=== PATIENT | female | born 1940 | race Caucasian/White ===

== ENCOUNTER → 2016-08-15 | Outpatient (CLI) | payer BC ==
[~2016-08-15] MED LIST: ASPI81TA28 PO; CHOL100010 PO; HYDR-5688 PO; LEVO75TA PO; OMEG10007 PO; WARF2TAB PO
--- NOTE | 2016-08-15 13:04 | MAMMOGRAPHY REPORT ---
BILATERAL DIGITAL SCREENING MAMMOGRAM TOMOSYNTHESIS WITH CAD: 08/15/2016 CLINICAL HISTORY: Asymptomatic. Personal history of breast cancer. TECHNIQUE: Breast tomosynthesis in addition to standard 2D mammography was performed. Current study was also evaluated with a Computer Aided Detection (CAD) system. COMPARISON: Comparison is made to exams dated: 08/03/2015 mammogram, 08/01/2014 mammogram, 07/22/2013 ma mmogram, 07/21/2012 mammogram, 07/17/2011 mammogram, and 06/27/2010 mammogram - [facility] nter. BREAST COMPOSITION: The tissue of both breasts is heterogeneously dense, which may obscure small ma sses. FINDINGS: No suspicious masses, calcifications, or areas of architectural distortion are noted in e ither breast. There has been no significant interval change compared to prior exams. Mild landscape architect and planner ural distortion is seen within the right lateral breast and left upper outer quadrant on the tomosyn thesis images; these are felt to be due to postsurgical changes as linear scar markers denote scars at the sites of the architectural distortion. Another linear scar marker denotes a scar in the righ t 12:00 breast. Scattered bilateral benign-appearing calcifications are not significantly changed. Bilateral asymmetries are stable. IMPRESSION: ACR BI-RADS CATEGORY 2: BENIGN There is no mammographic evidence of malignancy. A 1 year screening mammogram is recommended. The p atient will receive written notification of the results. Approximately 10% of breast cancers are not detected with mammography. A negative mammographic repor t should not delay biopsy if a clinically suggestive mass is present. Janice Tenorio M.D. /:08/15/2016 12:18:32 Signal Repairer: Gurpreet GARCIA(R)(M), [facility] letter sent: Normal 1/2 BI-RADS Code: ACR BI-RADS Category 2: Benign
== END | disposition home or self-care (01) ==
LOC: C.MAMM 11:18
PROVIDERS: ATTEND Internal Medicine
DX: Z12.31 Encounter for screening mammogram for malignant neoplasm of breast (principal); Z85.3 Personal history of malignant neoplasm of breast

== ENCOUNTER → 2016-09-05 | Outpatient (CLI) | payer BC | END | disposition home or self-care (01) | LOC: C.RDSM 13:20 | PROVIDERS: ATTEND Physical Medicine & Rehabilitation Sports Medicine | DX: Z98.890 Other specified postprocedural states (principal); Z96.642 Presence of left artificial hip joint ==

== ENCOUNTER → 2016-09-19 | Outpatient (CLI) | payer BC ==
[2016-09-19 14:18] LABS: BASO % 0.2 %; BASO ABS # 0.01 K/uL (0-0.2); COMPLETE YES; EOS % 1.5 %; HEMATOCRIT 42.2 % (37-47); IG% 0.2 %; LYMPH % 28.1 %; MEAN CELL VOLUME 92.7 fL (80-100); MEAN CORPUSCULAR HEMOGLOBIN 30.1 pg (25-34); MEAN CORPUSCULAR HGB CONC 32.5 g/dl (32-36); MEAN PLATELET VOLUME 12.7 fL (7.4-10.4); MONO % 6.4 %; NEUT % 63.6 %; PLATELET COUNT 239 K/uL (130-400); RED BLOOD COUNT 4.55 M/uL (4.2-5.4); WHITE BLOOD COUNT 6.06 K/uL (4.8-10.8)
[2016-09-19 14:19] LABS: ESTIMATED AVERAGE GLUCOSE 120 mg/dl; HA1C FLAG Normal (Normal)
[2016-09-19 16:16] LABS: LYME DISEASE AB IGG NEG (NEG); LYME DISEASE AB IGM NEG (NEG)
[2016-09-24 14:10] LABS: HLA-B27** TC 528X NEGATIVE (NEGATIVE)
--- NOTE | 2016-09-26 10:41 | CODING QUERY MEDICAL NECESSITY ---
CQSUPPORTING DIAGNOSIS NEEDED A supporting diagnosis is required for the test/procedure performed on this patient in order for us to be reimbursed by the patient's insurance. Please provide a supporting diagnosis for the following test/procedure listed below next to the test name along with your signature. *If there is no additional diagnosis for this patient that would support the following test/procedure please document that below next to the test/procedure. Test(s)/Procedure(s) that require a supporting diagnosis: DOS 09/19/16 GLYCATED HEMOGLOBIN HISTOLOGY TESTING Provider Signature: Date: Thank you Tiffanie Fisher Health Information Management Once completed, please kindly fax back to [phone] For questions please call [phone]
== END | disposition home or self-care (01) ==
LOC: C.LAB 12:37
PROVIDERS: ATTEND Ophthalmology
DX: H20.9 Unspecified iridocyclitis (principal)

== ENCOUNTER → 2016-12-13 | Outpatient (CLI) | payer BC, OTHER ==
--- NOTE | 2016-12-13 12:58 | DIAGNOSTIC IMAGING REPORT ---
RIGHT KNEE 4 OR MORE CLINICAL HISTORY: RIGHT KNEE PAIN Right COMPARISON STUDY: Right knee 01/25/2016. FINDINGS: Mild cartilage space narrowing within the medial compartment of the left knee, unchanged. No fracture or dislocation within the right knee. No significant right knee effusion. The bones are osteopenic. There is tricompartmental osteoarthritis within the right knee which is not significantly changed. This includes a large marginal osteophytes. There is [id number] articulation within the medial compartment of the right knee. IMPRESSION: No change in the advanced arthritic change within the right knee. Electronically signed by: Victor Manuel Goldsmith M.D. 12/13/2016 12:56 PM Dictated Date/Time: 12/13/2016 12:54 PM
== END | disposition home or self-care (01) ==
LOC: C.RDSM 12:20
PROVIDERS: ATTEND Physician Assistant
DX: Z01.818 Encounter for other preprocedural examination (principal); M17.11 Unilateral primary osteoarthritis, right knee; E89.0 Postprocedural hypothyroidism

== ENCOUNTER → 2016-12-13 | Outpatient (CLI) | payer BC ==
[2016-12-13 15:20] LABS: BASO % 0.3 %; BASO ABS # 0.02 K/uL (0-0.2); COMPLETE YES; EOS % 1.9 %; HEMATOCRIT 41.3 % (37-47); IG% 0.2 %; LYMPH % 29.2 %; LYMPH ABS # 1.85 K/uL (1.2-3.4); MEAN CELL VOLUME 92.4 fL (80-100); MEAN CORPUSCULAR HEMOGLOBIN 31.1 pg (25-34); MEAN CORPUSCULAR HGB CONC 33.7 g/dl (32-36); MEAN PLATELET VOLUME 13.2 fL (7.4-10.4); MONO % 7.6 %; NEUT % 60.8 %; PLATELET COUNT 217 K/uL (130-400); RED BLOOD COUNT 4.47 M/uL (4.2-5.4); URINE APPEARANCE CLEAR (CLEAR); URINE BILIRUBIN NEG (NEG); URINE COLOR YELLOW; URINE NITRITE NEG (NEG); URINE PH 5.5 (4.5-7.5); UROBILINOGEN NEG (NEG); WHITE BLOOD COUNT 6.34 K/uL (4.8-10.8)
[2016-12-13 15:24] LABS: MANUAL MICROSCOPIC REQUIRED? NO; REVIEW REQ? NO
[2016-12-13 15:29] LABS: INR 0.9 (0.9-1.1); PARTIAL THROMBOPLASTIN RATIO 1.1
[2016-12-13 15:36] LABS: ALT/SGPT 20 U/L (12-78); BLOOD UREA NITROGEN 16 mg/dl (7-18); BUN/CREATININE RATIO 24.2 (10-20); CALCIUM 9.6 mg/dl (8.5-10.1); CARBON DIOXIDE 29 mmol/L (21-32); CHLORIDE 109 mmol/L (98-107); CREATININE 0.67 mg/dl (0.60-1.20); GLUCOSE 80 mg/dl (70-99); POTASSIUM 3.8 mmol/L (3.5-5.1); SODIUM 142 mmol/L (136-145)
[2016-12-13 15:39] LABS: ALKALINE PHOSPHATASE 80 U/L (45-117); AST/SGOT 17 U/L (15-37)
[2016-12-13 15:45] LABS: THYROID STIMULATING HORMONE 0.882 uIu/ml (0.300-4.500)
--- NOTE | 2017-01-13 06:41 | CODING QUERY MEDICAL NECESSITY ---
SUPPORTING DIAGNOSIS NEEDED Dr. English, A supporting diagnosis is required for the test/procedure performed on this patient in order for us to be reimbursed by the patient's insurance. Please provide a supporting diagnosis for the following test/procedure listed below next to the test name along with your signature. *If there is no additional diagnosis for this patient that would support the following test/procedure please document that below next to the test/procedure. Test(s)/Procedure(s) that require a supporting diagnosis: * ([id number]) VITAMIN D ASSAY DIAGNOSIS: DATE OF SERVICE: 12/13/16 Provider Signature: Date: Thank you Cal Covarrubias [facility] Information Management Once completed, please kindly fax back to [phone] For questions please call [phone]
== END | disposition home or self-care (01) ==
LOC: C.LAB 12:54
PROVIDERS: ATTEND Internal Medicine
DX: Z01.818 Encounter for other preprocedural examination (principal); E89.0 Postprocedural hypothyroidism; E55.9 Vitamin D deficiency, unspecified

== ENCOUNTER 2017-01-08 08:20 | Inpatient (IN) | payer BC, OTHER ==
[2016-12-02 11:00] VITALS: BMI 33.0
--- NOTE | 2016-12-13 13:47 | DIAGNOSTIC IMAGING REPORT ---
CHEST 2 VIEWS ROUTINE CLINICAL HISTORY: Preoperative chest COMPARISON STUDY: 09/15/2006 FINDINGS: The cardiac and mediastinal contours are normal. There is no evidence of focal pulmonary consolidation. There is no evidence of failure. No pleural effusions are visualized.[ IMPRESSION: No active disease in the chest. Electronically signed by: Wayne Gracia M.D. 12/13/2016 1:46 PM Dictated Date/Time: 12/13/2016 1:46 PM
--- NOTE | 2016-12-20 08:32 | HISTORY & PHYSICAL EXAMINATION ---
DATE OF ADMISSION: 01/08/2017 CHIEF COMPLAINT: Right knee pain. HISTORY OF PRESENT ILLNESS: This 76-year-old white female presents to the office with complaints of right knee pain that had been ongoing for more than a year. Pain has become worse with time. It is now affecting her ADLs. It is worse with weightbearing. She denies any numbness or tingling. No effusions. She does get night pain. She has tried physical therapy as well as activity modification and oral anti-inflammatories without lasting relief. She elects to proceed with surgery in hopes of alleviating her pain. Preoperative x-rays have been obtained. PAST MEDICAL HISTORY: Significant for osteoarthritis, parathyroid cancer, breast cancer, asthma, actinic keratosis, and seborrheic keratosis. FAMILY HISTORY: Noncontributory. SOCIAL HISTORY: The patient previously had a left total hip arthroplasty in 2010, multiple biopsies of her skin, breast lumpectomy, tonsillectomy, and parathyroidectomy. ALLERGIES: KNOWN ALLERGY TO CIPRO AND ERYTHROMYCIN. CURRENT MEDICATIONS: Advil p.r.n., Paulette 180 mg p.o. daily, aspirin 81 mg p.o. daily, fish oil daily, Synthroid 75 mcg p.o. daily, vitamin B and D daily. PHYSICAL EXAMINATION: VITAL SIGNS: The patient is retired. . No tobacco use, quit in 1983. No ETOH use. REVIEW OF SYSTEMS: Significant for above stated conditions, otherwise unremarkable. PHYSICAL EXAMINATION: GENERAL: Well-developed, well-nourished elderly white female in no acute distress. Sitting in a chair. Alert and oriented. SKIN: Warm and dry with good turgor. No rashes or lesions. No ecchymosis or erythema. HEAD, EYES, EARS, NOSE, AND THROAT: Normocephalic, atraumatic. Eyes PERRLA, EOMI. Nares patent bilaterally without turbinate enlargement. Oropharynx without erythema or exudate. No lesions noted. Uvula midline. Oral mucosa moist. Fair dentition. HEART: RRR. No MGR. LUNGS: Clear to auscultation bilaterally. No crackles, rhonchi or wheezing. Good air movement. ABDOMEN: Bowel sounds present x4, soft, nontender. No organomegaly. Obese. MUSCULOSKELETAL: Right knee has a mild intra-articular effusion. No redness or warmth. Full terminal extension. Flexion to greater than 90 degrees. There is crepitus with motion. Stable collateral ligaments. No defect in the patellar tendon or quadriceps tendon. Ambulatory with an antalgic gait. NEUROLOGIC: Gross sensation is intact across the right leg via soft touch. Peripheral pulses are 2+. Cranial nerves II-XII are intact. DATA: Radiographic imaging previously obtained shows end-stage DJD of the right knee. She has periarticular osteophytes, subchondral sclerosis, and joint space narrowing. IMPRESSION: Right knee end-stage degenerative joint disease. PLAN: Informed written consent to proceed with right total knee arthroplasty will be obtained the morning of surgery. Postoperative prescriptions for Percocet and Coumadin will be provided at discharge from the hospital. The patient did inquire if she would be able to stop Coumadin early and transition to aspirin. We will see how active she becomes postoperatively. She already has a walker and cane. She will obtain medical clearance from her PCP, Dr. English. Anticipate discharge to home with home health services. Her daughter will stay with her for a short while after surgery.
[~2017-01-08] VITALS: Ht 167.6 cm; Wt 93.0 kg
[2017-01-08] VITALS (9 sets, daily range): BP systolic 117–148; BP diastolic 72–95; PULSE 57–80; TEMP 36.4–36.7; O2SAT 93–100; Ht 167.6 cm; Wt 93.0 kg
[~2017-01-08 08:20] MED LIST changes: +BUPIVACAINE 0.25% 30 ML VIAL ONE; +BUPIVACAINE 0.5 % 5 MG/1 ML PF 10ML VIAL ONE; +CEFAZOLIN 2000 MG/60 ML D5W 60 ML IV SCH; -HYDR-5688 PO; +LACTATED RINGER'S 1000ML 1,000 ML IV SCH; +LACTATED RINGER'S 1000ML 500 ML IV ONE; +ROPIVACAINE 5MG/ML 30 ML 150 MG, BUPIVACAINE/EPINEPHR 0.5% MPF 30 ML, KETOROLAC TROMETH... INFIL SCH; +TRANEXAMIC ACID INJ 1,000 MG in SODIUM CHLORIDE 0.9% 100ML 100 ML IV SCH; -WARF2TAB PO
--- NOTE | 2017-01-08 08:29 | History & Physical Bridge Note ---
H&P Re-Evaluation Bridge Note: I have examined the patient, reviewed the History & Physical and in the interval since the performance of the History & Physical I have noted the following changes of clinical significance: consent obtained.No changes noted
[2017-01-08] MEDS ORDERED: PROPOFOL IV EMULSION 10 MG/ML 20 ML VIAL IV ONE (09:27)
[2017-01-08] MEDS ORDERED: LIDOCAINE HCL 2% 2 ML VIAL (20MG/ML) ONE ×2 (09:27→11:21)
[2017-01-08] MEDS ORDERED: MIDAZOLAM HCL 1 MG/ML 2ML VIAL ONE ×2 (09:27→11:12)
[2017-01-08] MEDS ORDERED: FENTANYL CITRATE INJ 50 MCG/1 ML 2 ML VIAL ONE (09:27)
[2017-01-08] MEDS ORDERED: ONDANSETRON INJ 2 MG/ML 2 ML VIAL IV PRN ×2 (10:15→12:30)
[2017-01-08] MEDS ORDERED: PHENYLEPHRINE 100MCG/ML 5ML SYR IV PRN (10:15)
[2017-01-08] MEDS ORDERED: HYDROmorphone INJ 2 MG/ML SYR/VIAL IV PRN (10:15)
[2017-01-08] MEDS ORDERED: EpHEDrine SULFATE INJ 50 MG/ML AMP IV PRN (10:15)
[2017-01-08] MEDS ORDERED: KETOROLAC TROMETHAMINE 30 MG/ML VIAL IV. PRN (10:15)
[2017-01-08] MEDS ORDERED: ATROPINE SULFATE 0.1 MG/ML 5ML SYR IV PRN (10:15)
[2017-01-08] MEDS ORDERED: POVIDONE-IODINE OP SOLN 30 ML BTL ONE (10:29)
[2017-01-08] MEDS ORDERED: ORTHO JOINT ANESTHETIC ONE (10:29)
[2017-01-08] MEDS ORDERED: KETAMINE HCL INJ 50 MG/ML 10 ML VIAL ONE (11:08)
[2017-01-08] MEDS ORDERED: SODIUM CHLORIDE 0.9% INJ 10 ML VIAL ONE (12:01)
--- NOTE | 2017-01-08 12:17 | [facility] Post Operative Brief Note ---
Immediate Operative Summary Operative Date Jan 08, 2017. Pre-Operative Diagnosis Right knee end-stage degenerative joint disease Post-Operative Diagnosis Right knee end-stage degenerative joint disease Procedure(s) Performed Right total knee arthroplasty, cemented Surgeon Dr. Moy Middleware Developer Surgeon(s) Swapnil Zamarripa PA-C Estimated Blood Loss 50 mL Findings severe djd with varus and flexion deformity Fluids (cc crystalloids) 1200cc Specimens A: Right knee bone and tissue Drains none Anesthesia spinal Complication(s) None Disposition Recovery Room / PACU
[2017-01-08] MEDS ORDERED: DiphenhydrAMINE HCL 50 MG/ML VIAL IV PRN (12:30)
[2017-01-08] MEDS ORDERED: ALUMINUM/MAGNESIUM/SIMETH (MAALOX MAX) 30 ML UDC PO PRN (12:30)
[2017-01-08] MEDS ORDERED: MAGNESIUM HYDROXIDE SUSP 30 ML UDC PO PRN (12:30)
[2017-01-08] MEDS ORDERED: MoRPHine SULFATE 2 MG/ML CARP IV PRN (12:30)
[2017-01-08] MEDS ORDERED: BISACODYL 10 MG SUPP PR PRN (12:30)
[2017-01-08] MEDS ORDERED: METOCLOPRAMIDE HCL INJ 5 MG/ML 2 ML VIAL IV PRN (12:30)
[2017-01-08] MEDS ORDERED: ACETAMINOPHEN 325 MG TAB PO PRN (12:30)
[2017-01-08] MEDS ORDERED: ACETAMINOPHEN IV 100 ML IV PRN (12:30)
--- NOTE | 2017-01-08 12:40 | [facility] Operative Report ---
Operative Report Operative Date Jan 08, 2017. Pre-Operative Diagnosis Right knee end-stage degenerative joint disease Post-Operative Diagnosis Right knee end-stage degenerative joint disease Procedure(s) Performed Right total knee arthroplasty, cemented Surgeon Dr. Moy Licensed Marriage And Family Therapist Surgeon(s) Swapnil Zamarripa PA-C, Bernabe Flores Estimated Blood Loss 50 mL Findings Right knee DJD Fluids 1200cc Specimens A: Right knee bone and tissue Drains none Anesthesia spinal Complication(s) None Disposition Recovery Room / PACU Indications This 76-year-old white female presented to the office with complaints of intractable right knee pain. She had tried conservative measures including activity modification, physical therapy, oral anti-inflammatories, cortisone injections, and viscous supplementation injections. Her pain persisted. It was affecting her ADLs. She elected to proceed with surgical management in hopes of alleviating her pain. Preoperative imaging was obtained. Description of Procedure Patient was administered a spinal anesthetic and then taken to the operating room where she was given sedation. She was prepped and draped in usual sterile fashion. Please see Dr. Moy's operative report for specifics of the procedure. I was present for the entire case from initial patient positioning through final wound closure. Assistance was provided in tissue traction, hemostasis, trial implant placement, final implant placement, and final wound closure. Patient was taken to the recovery room in satisfactory condition. I attest to the content of the Intraoperative Record and any orders documented therein. Any exceptions are noted below.
--- NOTE | 2017-01-08 12:51 | OPERATIVE REPORT ---
DATE OF OPERATION: 01/08/2017 SURGEON: Dr. Moy. CARE COMPANION: Bernabe. SECOND ASSITANT: Swapnil Zamarripa PA-C. PREOPERATIVE DIAGNOSIS: Osteoarthritis, right knee with flexion and varus deformity. POSTOPERATIVE DIAGNOSIS: Same. OPERATION PERFORMED: Cemented right total knee replacement. SUMMARY OF IMPLANTS: Size 4 right femur narrow, size 4 tibial tray, oval domed 3-pegged patella size 41, tibial insert size 4 15 mm thick posterior cruciate substituting. Two bags of Palacos G cement. ESTIMATED BLOOD LOSS: 50 mL. CRYSTALLOID: 1200 mL. DVT prophylaxis per protocol. DESCRIPTION OF PROCEDURE: The patient appropriately identified, site verified, consent verified, 2 g of Ancef confirmed as being given. The right lower extremity was prepped and draped in usual routine fashion. Tourniquet inflated to 300 mmHg after exsanguination of the limb with a rubber Esmarch bandage for a total of 55 minutes. Midline exposure was utilized. Parapatellar arthrotomy performed. Appropriate synovectomy and soft tissue releases performed. She had significant varus and flexion deformity. Cruciates were then resected. The distal femur entered. The distal femur resected 14 mm. Femur was an unusual size, was measured between a 5 and a 6. It was measured 6 and cut 5 and then the anterior and posterior condylar and chamfer cuts made. Proximal tibia was then measured to be a size 4, was delivered in the wound and a 4 mm resection made and the extension gap was excellent. Once the box cut was made, the flexion gap was checked and that was excellent. A size 5 trial then seemed still to overhang a bit and so forth so was sized down and recut to a 4. This definitely made things more appropriate as far as matching the patient's anatomy and the implant fit extremely well. The tibia was then broached and reamed to a 4. Trial reductions were carried out and a 15 insert made the most stability in mid range flexion without eliminating extension. The patella was sized to 41, it was then resected, leaving 15 mm. Seating holes made and the trial tracked well. All trial implants were then removed. The wound irrigated with the Pulsavac, with Betadine, with the Pulsavac and then the permanent cemented into position. After 12 minutes, the tourniquet deflated. After 14 minutes, the knee flexed. Minor cement removal occurred. The knee was then irrigated with Betadine, Pulsavac and the permanent liner seated. The knee reduced, it tracked well, it was very stable in extension, mid range flexion and full flexion. The wound was then closed with #1 Ethibond for the capsule layer, 2-0 Vicryl for the subcutaneous layer and stainless steel clips for skin. Appropriate dressing applied and the patient transferred to recovery room in satisfactory condition, having tolerated the procedure well. I attest to the content of the Intraoperative Record and any orders documented therein. Any exception s are noted below.
[2017-01-08] MEDS ORDERED: MoRPHine SULFATE 4 MG/ML 1 ML CARP\\VIAL IV PRN (13:00)
--- NOTE | 2017-01-08 13:06 | Progress Note ---
Progress Note Date of Service Jan 08, 2017. Progress Note Postop check in recovery room. She denies chest pain shortness of breath fever chills nausea vomiting or headache. Vital signs are stable she's afebrile. X-rays are pending. Physical exam reveals calves to be nontender, hips are located, dressing clean dry and intact. Assessment doing well continue with care pathway. Dictated not read.
--- NOTE | 2017-01-08 13:29 | DIAGNOSTIC IMAGING REPORT ---
ADDENDUM In consultation with the surgeon performing the procedure, it was felt that osseous fragmentation at the medial femoral condyle definitely is a consequence of exuberant marginal osteophytosis. Osteophytosis in this region was best appreciated on tunnel view from 12/13/2016. Electronically signed by: Abiodun Davies M.D. 01/13/2017 12:44 PM Dictated Date/Time: 01/13/2017 12:42 PM ORIGINAL REPORT RIGHT KNEE 1 OR 2 VIEWS ROUTINE CLINICAL HISTORY: 76 years-old Female presenting with right knee osteoarthritis. TECHNIQUE: Frontal and crosstable lateral views of the right knee were obtained. COMPARISON: 12/13/2016. FINDINGS: There has been interval total right knee arthroplasty with patellar resurfacing. Surgical skin valerie and intra-articular and soft tissue emphysema noted. Fragmentation of the medial femoral condyle likely a consequence of osteophytosis at the site. No other evidence of fracture. No hardware convocation or malalignment. IMPRESSION: Postsurgical changes of total right knee arthroplasty with patellar resurfacing. Osseous fragmentation at the medial femoral condyle likely a consequence of osteophytosis at this site. Electronically signed by: Abiodun Davies M.D. 01/08/2017 1:27 PM Dictated Date/Time: 01/08/2017 1:26 PM
--- NOTE | 2017-01-08 13:54 | Anesthesiology Progress Note ---
Anesthesia Post Op Note Date & Time Jan 08, 2017 at 13:54 Vital Signs Pain Intensity: 0 Vital Signs Past 12 Hours Date Time Temp Pulse Resp B/P (MAP) Pulse Ox O2 Delivery O2 Flow Rate FiO2 01/08/17 13:15 55 18 121/71 96 Nasal Cannula 3 01/08/17 13:05 61 18 117/72 96 Nasal Cannula 3 01/08/17 12:55 57 18 107/66 96 Nasal Cannula 3 01/08/17 12:45 56 18 116/67 94 Nasal Cannula 3 01/08/17 12:35 63 18 115/65 96 Nasal Cannula 3 01/08/17 12:28 36.2 77 18 107/66 96 Nasal Cannula 3 01/08/17 09:02 36.5 80 18 148/95 97 Room Air Notes Mental Status: alert / awake / arousable, participated in evaluation Pt Amnestic to Procedure: Yes Nausea / Vomiting: adequately controlled Pain: adequately controlled Airway Patency, RR, SpO2: stable & adequate BP & HR: stable & adequate Hydration State: stable & adequate Anesthetic Complications: no major complications apparent
[2017-01-08] MEDS ORDERED: HYDR-5688 PO (14:22)
[2017-01-08] MEDS ORDERED: WARF2TAB PO (14:22)
[2017-01-08] MEDS ORDERED: D5W AND 1/2NSS + 20MEQ KCL 1,000 ML IV SCH (16:00)
[2017-01-08] MEDS ORDERED: WARFARIN SOD 5 MG TAB PO ONE (18:00)
[2017-01-08] MEDS ORDERED: TRANEXAMIC ACID INJ 1,000 MG in SODIUM CHLORIDE 0.9% 100ML 100 ML IV SCH (18:30)
[2017-01-08] MEDS: FERROUS GLUCONATE 324 MG TAB PO SCH (18:34)
[2017-01-08] MEDS: KETOROLAC TROMETHAMINE 15 MG/ML VIAL IV. SCH (18:34)
[2017-01-08] MEDS: CEFAZOLIN IV 2,000 MG in DEXTROSE 5% 50ML 50 ML IV SCH (18:34)
[2017-01-08] MEDS: HYDROCODONE/ACETAMOPHEN 5/325MG TAB PO PRN (19:58)
[2017-01-08] MEDS: PrednisoLONE ACET 1% OP SUSP 5 ML BTL OPR SCH (20:59)
[2017-01-08] MEDS ORDERED: ASPIRIN 81 MG ECTAB PO SCH (21:00)
[2017-01-08] MEDS: DOCUSATE SODIUM 100 MG CAP PO SCH (21:01)
[2017-01-08] MEDS ORDERED: NURSING VERBAL MED ORDER ONE (22:30)
[2017-01-09] MEDS: KETOROLAC TROMETHAMINE 15 MG/ML VIAL IV. SCH ×3 (00:09→12:35)
[2017-01-09] MEDS: HYDROCODONE/ACETAMOPHEN 5/325MG TAB PO PRN ×2 (01:39→11:20)
[2017-01-09] MEDS: CEFAZOLIN IV 2,000 MG in DEXTROSE 5% 50ML 50 ML IV SCH (01:39)
[2017-01-09 02:39] VITALS: BP 99/66; PULSE 50; TEMP 36.7; O2SAT 97
[2017-01-09 05:18] VITALS: BP 120/77
[2017-01-09] MEDS ORDERED: LEVOTHYROXINE 75 MCG TAB PO SCH (06:00)
[2017-01-09 06:39] LABS: MEAN CELL VOLUME 94.8 fL (80-100); MEAN CORPUSCULAR HEMOGLOBIN 31.2 pg (25-34); MEAN CORPUSCULAR HGB CONC 32.9 g/dl (32-36); MEAN PLATELET VOLUME 12.4 fL (7.4-10.4); PLATELET COUNT 166 K/uL (130-400); RED BLOOD COUNT 3.27 M/uL (4.2-5.4); WHITE BLOOD COUNT 13.73 K/uL (4.8-10.8)
[2017-01-09 06:54] VITALS: BP 98/60; PULSE 66; TEMP 36.6; O2SAT 96
[2017-01-09 06:56] LABS: PROTHROMBIN TIME (PATIENT) 10.9 SECONDS (9.0-12.0)
[2017-01-09 07:06] LABS: BUN/CREATININE RATIO 16.9 (10-20); CALCIUM 8.2 mg/dl (8.5-10.1); CREATININE 0.76 mg/dl (0.60-1.20); POTASSIUM 3.9 mmol/L (3.5-5.1)
--- NOTE | 2017-01-09 07:25 | PROGRESS NOTE ---
DATE: 01/09/2017 SUBJECTIVE: Postop day#1 status post right total knee replacement: The patient denies chest pain, shortness of breath, fever, chills, nausea, vomiting or headache. She did have some minor nausea after one of the pain medications, but responded well to Zofran. She is not nauseated now. Vital signs are stable. She is afebrile. Neurovascular check, femoral sciatic nerve is normal. Dressing clean, dry and intact. Can do straight leg raise, can do ankle pumps. Calves are nontender. Abdomen, nontender. LABORATORY WORK: Pending. ASSESSMENT: Doing well. Discharge today after physical therapy, occupational therapy. Social service assessment this morning. Wants to be discharged about noon. Coumadin dose per INR. If INR is less than 1.5, discharge on 4 mg.
[2017-01-09] MEDS ORDERED: DEXAMETHASONE INJ 10 MG in SYRINGE 0 ML IV ONE (07:30)
--- NOTE | 2017-01-09 07:31 | DISCHARGE SUMMARY ---
CHIEF COMPLAINT: Right knee pain. HISTORY OF PRESENT ILLNESS: The patient underwent elective right total knee replacement, had no intraoperative or perioperative complications. Only had some minor nausea. PAST MEDICAL HISTORY: Remarkable for osteoarthritis, parathyroid cancer, breast cancer, asthma, actinic keratosis, seborrheic keratosis. FAMILY HISTORY: Noncontributory. SOCIAL HISTORY: Reveals that she had a left total hip replacement in 2010, multiple skin biopsies, breast lumpectomy, tonsillectomy, and parathyroidectomy. ALLERGIES: TO CIPRO, AND ERYTHROMYCIN. PREADMISSION MEDICATIONS: Include, p.r.n. Advil , Paulette, aspirin 81 mg daily, fish oil, Synthroid 75 mcg daily, and vitamin B/D supplements. She will continue all of those medications, except the baby aspirin while she is on Coumadin. She will be discharged on 4 mg of Coumadin. If INR is less than 1.5, check INR on Friday. PHYSICAL EXAMINATION: Reveals good femoral and sciatic nerve functioning. Can lift the leg. Can do ankle pumps, is mobilizing well, is voiding well, is eating well. Wound dressing clean, dry and intact. ASSESSMENT: Doing well. PLAN: Continue with post-care pathway. Discharge today after PT, OT and social service assessments. RAFAEL
[2017-01-09] MEDS: PrednisoLONE ACET 1% OP SUSP 5 ML BTL OPR SCH ×2 (08:42→12:36)
[2017-01-09] MEDS: DOCUSATE SODIUM 100 MG CAP PO SCH (08:43)
[2017-01-09] MEDS: FERROUS GLUCONATE 324 MG TAB PO SCH ×2 (08:43→12:34)
[2017-01-09] MEDS ORDERED: PANTOprazole SOD 40 MG TAB PO SCH (09:00)
[2017-01-09] MEDS ORDERED: MULTIVITAMIN TAB PO SCH (09:00)
--- NOTE | 2017-01-09 09:23 | Discharge Instructions ---
Discharge Instructions Date of Service Jan 08, 2017. Admission Reason for Admission: Right Knee Osteoarthritis Discharge Discharge Diagnosis / Problem: right knee s/p total knee replacement Discharge Goals Goal(s): Decrease discomfort, Improve function, Increase independence Activity Recommendations Activity Limitations: as noted below Lifting Limitations: gradually increase as tolerated Exercise/Sports Limitations: until after follow-up appointment Shower/Bathe: keep incision dry Driving or Machine Use: No driving until cleared by Dr. Moy Weightbearing Status: Right weightbearing (as tolerated) . Instructions / Follow-Up Instructions / Follow-Up New Medicine: * You will likely be taking one or more of these medications: 1. [place] - Take, as directed, when you need it, every four to six hours to control your pain. 2. Coumadin - Thins your blood to lessen the chance of forming a blood clot. The dose of this is different for each person and is based on your blood tests that are done twice a week. * The most common side effects of pain medicine and iron are nausea and constipation. If nausea or constipation is too much of a problem or if you have any questions about your new medicines or doses, call [facility] at . We will try to help you manage these issues. VERY IMPORTANT TO READ AND REVIEW" Blood Clots and Blood Thinning Medicine: * You are given Coumadin during the immediate post-operative period to lessen the risk of blood clots forming in your legs and/or lungs. Coumadin is usually given for six weeks after surgery. * The prescription is for 2 mg tablets. At discharge, you should understand your dose and take it all at the same time every day, preferably after dinner. * You need to get your blood checked 1 - 2 times per week for six weeks or as directed. * If your dose needs to change, we will call you. Do not take your medication on the day of the blood test until we call you. Pain: * The immediate post-operative period after knee replacement surgery is often quite painful. * You are given a prescription for pain medicine. You should take it, as directed, when you need it, especially before physical therapy and before going to bed. Pain that interferes with sleep is very common and can last several months. * You will likely need pain medicine for the first four to six weeks. It will not stop all of the pain. The pain will lessen and as you feel better, you may change to milder pain medicine such as Tylenol. * The most common side effects of pain medicine are nausea and constipation, so don't take more than you need. Physical Therapy: * You will have physical therapy two or three times each week for four to six weeks after your surgery in order to regain your knee range of motion and to retrain your knee to work properly. * It is just as important to make sure you are getting your knee perfectly straight as it is to regain your knee bend. * Taking a pain pill an hour before therapy can help you have a more productive and comfortable therapy session if needed. Home Exercise: * You were shown a series of exercises (heel props, heel slides, etc.) in the hospital. Do these exercises three to four times each day including the exercises you were shown in physical therapy. Walking: * Get up and walk several times each day. For the first four weeks, try not to stand or walk for more than one hour at a time. If you do stand or walk for more than one hour, you will not hurt anything, but your knee and leg will likely swell. * As you feel comfortable, you may change from the walker or crutches to a cane and then to independent walking. SELF CARE INSTRUCTIONS AFTER TOTAL KNEE REPLACEMENT A. You may need to continue a physical therapy program after discharge from the hospital. There are several options available to you. Your doctor will assist you in selecting the best one for you. 1. An out-patient facility 2 to 3 times a week for therapy or home therapy. 2. Continue working on all exercises taught to you in the hospital. Your goals should be to increase bending of your knee to 90 degrees and beyond and to fully straighten your knee. B. You may progress at your own pace from walking with a walker or crutches to a cane; then to no assistive devices. C. Make walking a part of your daily routine. Be up as much as comfortable with rest periods throughout the day. Rest with leg elevation is very important. Use the ice wrap frequently for the first 3-4 weeks. D. There are no restrictions on activities. You may ride in a car, shop, participate in loading unit operator powder charging and all social activities. E. Wear the long elastic stockings (ELIZABETH hose) 20 hours a day for six weeks after surgery. They can be removed several times a day for laundering and for a shower. F. Do not place a pillow behind your knee when resting. A pillow at your ankle is okay. VERY IMPORTANT TO READ AND REVIEW A. Take Coumadin, Aspirin or Lovenox (blood thinning medications) as directed by your doctor. If on Coumadin, have a pro-time (blood test) drawn according to your doctor's instructions. This will tell the doctor how well the Coumadin is thinning your blood. 1. YOU WILL BE GIVEN AN ORDER AT DISCHARGE FOR PT/INR (BLOOD WORK). PLEASE HAVE THIS DONE INSTRUCTED. PLEASE CALL OUR OFFICE AFTER YOUR BLOODWORK IS COMPLETE SO WE CAN TRACK YOUR RESULTS. IF YOU ARE GOING TO OUTPATIENT PHYSICAL THERAPY, YOU WILL NEED TO GO TO OUTPATIENT TESTING TO HAVE IT DRAWN. B. There are a few signs you need to watch for after you are home. Call [facility] if you notice any of the followin. Increased severe knee pain. Some pain is expected especially when you exercise. 2. Increased swelling in your leg or knee; pain or swelling of the calf muscle in either lower leg. 3. Any fluid drainage from the incision. 4. Shortness of breath or chest pain. C. Please call [facility] at if you have any concerns or questions about your operation or recovery. The doctor or his nurse will return your call promptly. D. You must take antibiotics before dental work, bladder, bowel or other surgery. Call the office to obtain a prescription at least 2 days prior to your appointment. * CALL IF INCREASED PAIN, REDNESS, DRAINAGE OR FEVER GREATER THAT 101. * Sutures should be removed 12-14 days after surgery unless you are on chronic steriods, then it will be 14-18 days after surgery. Call your doctor if: * Temperature above 101 degrees F. * Pain not relieved by pain medicine ordered. * Increased drainage or redness from incision. * Notify your doctor with any questions or concerns. Current Hospital Diet Patient's current hospital diet: Regular Diet Discharge Diet Recommended Diet: Regular Diet Procedures Procedures Performed: Right total knee arthroplasty, cemented Pending Studies Studies pending at discharge: no Laboratory Results Lipid Panel Test 12/13/16 13:02 Range/Units Triglycerides Level 109 0-150 mg/dl Cholesterol Level 228 H 0-200 mg/dl HDL Cholesterol 57 mg/dl Cholesterol/HDL Ratio 4.0 LDL Cholesterol, Calculated 149 mg/dl Medical Emergencies . Who to Call and When: Medical Emergencies: If at any time you feel your situation is an emergency, please call 911 immediately. . Non-Emergent Contact Non-Emergency issues call your: Primary Care Provider, Surgeon Call Non-Emergent contact if: temperature is above 101, wound has increased drainage, wound has increased redness, wound has increased pain . "Provider Documentation" section prepared by Swapnil Zamarripa PA-C. . VTE Core Measure Inpt VTE Proph given/why not?: Warfarin (Coumadin), T.E.DRosa Stockings, SCD's [place] Drug Monitoring Program Search Results: no issues identified
--- NOTE | 2017-01-09 09:27 | Orthopedic Progress Note ---
Orthopedic Progress Note Date of Service Jan 09, 2017. Subjective Post OP Day: 1 Reports: feeling well, nausea / vomiting (had some early this morning, but is resolved), calf pain, pain controlled w PO medications, Denies: complaints, chest pain, SOB, light headedness Objective calves soft nontender, N/V intact, hip located, capillary refill less than 2 sec., dressing C/D/I, incision C/D/I, A&O x3, toes mobile, CMS intact minimal drainage on dressing, no active drainage Date Time Temp Pulse Resp B/P (MAP) Pulse Ox O2 Delivery O2 Flow Rate FiO2 01/09/17 07:15 Room Air 01/09/17 06:54 36.6 66 19 98/60 (73) 96 Room Air 01/09/17 05:18 120/77 (91) 01/09/17 02:39 36.7 50 18 99/66 (77) 97 Nasal Cannula 2.0 01/09/17 00:20 Room Air 01/08/17 22:45 36.4 60 16 117/74 (88) 93 Room Air 01/08/17 18:24 36.6 70 18 128/81 (97) 95 Room Air 01/08/17 17:32 36.7 62 16 128/84 (99) 100 Nasal Cannula 3.0 01/08/17 16:30 36.4 58 16 135/84 (101) 100 Room Air 01/08/17 16:15 100 Nasal Cannula 3.0 01/08/17 15:30 36.6 59 18 132/82 (99) 100 Nasal Cannula 3.0 01/08/17 15:00 62 17 143/87 (105) 99 Nasal Cannula 2.0 01/08/17 14:30 Nasal Cannula 3.0 01/08/17 14:30 97 Nasal Cannula 3.0 01/08/17 14:30 36.7 57 18 122/72 (89) 97 Nasal Cannula 3.0 01/08/17 14:15 36.9 65 18 129/78 97 Nasal Cannula 3 01/08/17 14:00 36.9 59 18 120/73 97 Nasal Cannula 3 01/08/17 13:45 58 18 124/73 97 Nasal Cannula 3 01/08/17 13:35 55 18 125/81 97 Nasal Cannula 3 01/08/17 13:25 60 18 123/72 97 Nasal Cannula 3 01/08/17 13:15 55 18 121/71 96 Nasal Cannula 3 01/08/17 13:05 61 18 117/72 96 Nasal Cannula 3 01/08/17 12:55 57 18 107/66 96 Nasal Cannula 3 01/08/17 12:45 56 18 116/67 94 Nasal Cannula 3 01/08/17 12:35 63 18 115/65 96 Nasal Cannula 3 01/08/17 12:28 36.2 77 18 107/66 96 Nasal Cannula 3 Laboratory Results 24 Hours: Test 01/09/17 06:07 Hematocrit 31.0 % Hemoglobin 10.2 g/dL Prothromb Time International Ratio 1.0 Prothrombin Time 10.9 SECONDS Assessment & Plan Assessment: right knee post op day 1 total knee arthroplasty Plan: PT/OT today continue total knee precautions D/C today to home with home health WBAT follow up in the office in 2 weeks as scheduled coumadin per nomogram dressing changed this morning by me-wound looks very good. Discharge Planning Discharge Planning: home with home health Pain Management: [place] DVT Prophylaxis: TEDs, SCDs, Coumadin Therapy: Physical Therapy, Occupational Therapy
[2017-01-09 10:16] VITALS: BP 117/77; PULSE 79; O2SAT 98
[2017-01-09 11:06] VITALS: BP 117/77; PULSE 79; TEMP 36.6; O2SAT 98
--- NOTE | 2017-01-09 11:08 | Anesthesiology Progress Note ---
Anesthesia Post Op Note Date & Time Jan 09, 2017 at 11:08 Vital Signs Pain Intensity: 3.0 Vital Signs Past 12 Hours Date Time Temp Pulse Resp B/P (MAP) Pulse Ox O2 Delivery O2 Flow Rate FiO2 01/09/17 10:16 79 16 117/77 (90) 98 Nasal Cannula 2.0 01/09/17 07:15 Room Air 01/09/17 06:54 36.6 66 19 98/60 (73) 96 Room Air 01/09/17 05:18 120/77 (91) 01/09/17 02:39 36.7 50 18 99/66 (77) 97 Nasal Cannula 2.0 01/09/17 00:20 Room Air Notes Mental Status: alert / awake / arousable, participated in evaluation Pt Amnestic to Procedure: Yes Nausea / Vomiting: adequately controlled Pain: adequately controlled Airway Patency, RR, SpO2: stable & adequate BP & HR: stable & adequate Hydration State: stable & adequate Neuraxial Anesthesia: was administered, sensory block resolved Anesthetic Complications: no major complications apparent
[2017-01-09] MEDS ORDERED: WARFARIN SOD 5 MG TAB PO ONE (12:30)
== END 2017-01-09 13:30 | disposition home health service (06) | DRG 470 ==
LOC: C.ACU 08:20 → C.3E 08:30 → ENRESERV 14:11
PROVIDERS: ADMIT Physical Medicine & Rehabilitation Sports Medicine; ATTEND Physical Medicine & Rehabilitation Sports Medicine
PROC: 0SRC0J9 Replacement of Right Knee Joint with Synthetic Substitute, Cemented, Open Approach (ICD-10-PCS; principal; 2017-01-08 10:40)
DX: M17.11 Unilateral primary osteoarthritis, right knee (principal); J45.909 Unspecified asthma, uncomplicated; R11.0 Nausea; Z96.642 Presence of left artificial hip joint; E66.9 Obesity, unspecified; Z68.33 Body mass index [BMI] 33.0-33.9, adult; Z85.850 Personal history of malignant neoplasm of thyroid; Z90.89 Acquired absence of other organs; Z87.891 Personal history of nicotine dependence; Z79.1 Long term (current) use of non-steroidal anti-inflammatories (NSAID); Z79.82 Long term (current) use of aspirin; Z79.899 Other long term (current) drug therapy

== ENCOUNTER → 2017-01-13 | Outpatient (CLI) | payer BC ==
[~2017-01-13] MED LIST changes: -BUPIVACAINE 0.25% 30 ML VIAL ONE; -BUPIVACAINE 0.5 % 5 MG/1 ML PF 10ML VIAL ONE; -CEFAZOLIN 2000 MG/60 ML D5W 60 ML IV SCH; +HYDR-5688 PO; -LACTATED RINGER'S 1000ML 1,000 ML IV SCH; -LACTATED RINGER'S 1000ML 500 ML IV ONE; -OMEG10007 PO; -ROPIVACAINE 5MG/ML 30 ML 150 MG, BUPIVACAINE/EPINEPHR 0.5% MPF 30 ML, KETOROLAC TROMETH... INFIL SCH; -TRANEXAMIC ACID INJ 1,000 MG in SODIUM CHLORIDE 0.9% 100ML 100 ML IV SCH; +WARF2TAB PO
[2017-01-13 12:09] LABS: INR 1.2 (0.9-1.1); PROTHROMBIN TIME (PATIENT) 12.6 SECONDS (9.0-12.0)
== END | disposition home or self-care (01) ==
LOC: C.LABSPEC 11:31
PROVIDERS: ATTEND Physical Medicine & Rehabilitation Sports Medicine
DX: Z51.81 Encounter for therapeutic drug level monitoring (principal); Z79.01 Long term (current) use of anticoagulants

== ENCOUNTER → 2017-01-17 | Outpatient (CLI) | payer BC ==
[2017-01-17 11:38] LABS: INR 1.4 (0.9-1.1); PROTHROMBIN TIME (PATIENT) 15.7 SECONDS (9.0-12.0)
== END | disposition home or self-care (01) ==
LOC: C.LABSPEC 11:06
PROVIDERS: ATTEND Physical Medicine & Rehabilitation Sports Medicine
DX: Z51.81 Encounter for therapeutic drug level monitoring (principal); Z79.01 Long term (current) use of anticoagulants

== ENCOUNTER → 2017-03-03 | Outpatient (CLI) | payer BC | END | disposition home or self-care (01) | LOC: C.RDSM 11:00 | PROVIDERS: ATTEND Physical Medicine & Rehabilitation Sports Medicine | DX: M25.561 Pain in right knee (principal) ==

== ENCOUNTER → 2017-09-11 | Outpatient (CLI) | payer BC ==
[~2017-09-11] MED LIST changes: -HYDR-5688 PO; -WARF2TAB PO
--- NOTE | 2017-09-11 15:33 | MAMMOGRAPHY REPORT ---
BILATERAL DIGITAL SCREENING MAMMOGRAM TOMOSYNTHESIS WITH CAD: 09/11/2017 CLINICAL HISTORY: Asymptomatic. Personal history of breast cancer. TECHNIQUE: Breast tomosynthesis in addition to standard 2D mammography was performed. Current study was also evaluated with a Computer Aided Detection (CAD) system. COMPARISON: Comparison is made to exams dated: 08/15/2016 mammogram, 08/03/2015 mammogram, 08/01/2014 ron mogram, 07/22/2013 mammogram, 07/21/2012 mammogram, and 07/17/2011 mammogram - [facility]. BREAST COMPOSITION: The tissue of both breasts is heterogeneously dense, which may obscure small mas ses. FINDINGS: No suspicious masses, calcifications, or areas of architectural distortion are noted in ei ther breast. There has been no significant interval change compared to prior exams. There are stable post surgical changes in bilateral upper outer quadrants. Bilateral benign-appearing calcifications are not significantly changed. Linear scar markers denote scars on bilateral breasts. IMPRESSION: ACR BI-RADS CATEGORY 2: BENIGN There is no mammographic evidence of malignancy. A 1 year screening mammogram is recommended. The pa tient will receive written notification of the results. Approximately 10% of breast cancers are not detected with mammography. A negative mammographic report should not delay biopsy if a clinically suggestive mass is present. Janice Tenorio M.D. /:09/11/2017 15:06:37 Pick Up And Delivery Driver: Allyson FELICIANO)(Main), [facility] letter sent: Normal 1/2 BI-RADS Code: ACR BI-RADS Category 2: Benign
== END | disposition home or self-care (01) ==
LOC: C.MAMM 13:18
PROVIDERS: ATTEND Internal Medicine
DX: Z12.31 Encounter for screening mammogram for malignant neoplasm of breast (principal); Z85.3 Personal history of malignant neoplasm of breast

== ENCOUNTER 2019-10-06 06:56 | Observation (INO) ==
--- NOTE | 2019-09-22 21:02 | PAT Medication Instructions ---
Medication Instructions Date of Service September 22, 2019 Home Medications cholecalciferol (vitamin D3) 50 mcg (2,000 unit) tablet 2,000 units PO DAILY epinephrine 0.3 mg/0.3 mL injection, auto-injector 0.3 mg IM ONCE MD fexofenadine 60 mg tablet 60 mg PO DAILY PRN levothyroxine 75 mcg tablet 75 mcg PO UD calcium citrate 200 mg (950 mg) tablet 200 mg PO DAILY albuterol sulfate [ProAir HFA] 1 inh INHALATION QID PRN conjugated estrogens [Premarin] 0.625 mg VAGINAL WK Continue as directed epinephrine 0.3 mg/0.3 mL injection, auto-injector 0.3 mg IM ONCE MD (if needed) DO NOT take the morning of surgery cholecalciferol (vitamin D3) 50 mcg (2,000 unit) tablet 2,000 units PO DAILY fexofenadine 60 mg tablet 60 mg PO DAILY PRN calcium citrate 200 mg (950 mg) tablet 200 mg PO DAILY conjugated estrogens [Premarin] 0.625 mg VAGINAL WK Take morning of surgery With a small sip of water, OTHERWISE NOTHING TO EAT OR DRINK AFTER MIDNIGHT: levothyroxine 75 mcg tablet 75 mcg PO UD albuterol sulfate [ProAir HFA] 1 inh INHALATION QID PRN (use if needed; please bring with you to hospital day of surgery if possible) Take evening before surgery fexofenadine 60 mg tablet 60 mg PO DAILY PRN (if needed) albuterol sulfate [ProAir HFA] 1 inh INHALATION QID PRN (if needed) Other Notes If you have any questions please call us at [phone] or [phone] or [phone] or [phone]
--- NOTE | 2019-09-23 13:12 | Anesthesiology Consultation ---
Date of Service September 23, 2019 Assessment & Plan (1) Encounter for pre-operative examination: - Awaiting review of preop testing (T&S). Per PAT assessment on 09/22: Travel screen- Patient traveled to [place], [place] to visit sister/brother in law 09/18-09/19 (only interacted with sister/brother in law, frequent hand washing, did not wear mask). No known COVID-19 positive contacts. No current COVID-19 related symptoms. Patient scheduled to have COVID- 19 testing done 3 days prior to surgery per surgeon protocol. Awaiting COVID-19 results. - Awaiting surgeon-ordered PCP clearance (Dr. English)/not scheduled yet per patient. Chart Review Chart Review: Patient seen in Pre Admission Testing Teaching & Discussion Pre-Anesthesia Teaching/Discussion Notes: Instructed NPO after midnight before surgery,except medications with 15 cc of water. Medication instructions provided according to the PAT guidelines. History Surgery Operation Date: 10/06/19 07:00 Proposed Procedures p Right Total Hip Arthroplasty - Gorge Moy MD Height/Weight Height: 5 ft 6 in Weight: 105.1 kg Allergies Allergy/AdvReac Type Severity Reaction Status Date / Time ciprofloxacin Allergy Intermediate tachycardia Verified 09/23/19 13:08 erythromycin base Allergy Intermediate hives Verified 09/23/19 13:08 Sulfa (Sulfonamide Allergy Intermediate hives Verified 09/23/19 13:08 Antibiotics) Cipro AdvReac Mild TACHYACARDI Verified 01/08/17 09:33 A Medications Home Medications Medication Instructions Recorded Confirmed Last Taken cholecalciferol (vitamin D3) 50 2,000 units PO DAILY tab 10/23/18 08/27/19 Unknown mcg (2,000 unit) tablet epinephrine 0.3 mg/0.3 mL 0.3 mg IM ONCE PRN #2 ea 10/23/18 08/27/19 Unknown injection, auto-injector fexofenadine 60 mg tablet 60 mg PO DAILY PRN tab 10/23/18 08/27/19 Unknown levothyroxine 75 mcg tablet 75 mcg PO UD tab 10/23/18 08/27/19 Unknown calcium citrate 200 mg (950 mg) 200 mg PO DAILY tab 11/04/18 08/27/19 Unknown tablet albuterol sulfate [ProAir HFA] 1 inh INHALATION QID PRN 08/27/19 08/27/19 Unknown conjugated estrogens [Premarin] 0.625 mg VAGINAL WK 08/27/19 08/27/19 Unknown Past Medical History Medical History Asthma, intermittent 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 Hypothyroidism Obesity Osteoarthritis Osteoporosis Parathyroid cancer s/p parathyroidectomy Prediabetes Stress incontinence Uterine prolapse + pessary Exercise / Class Metabolic Activity II 4-5 Yardwork/Stairs/Walk up hill Past Family History Family History Sister Multiple myeloma Grandmother (Paternal) Family history of diabetes mellitus Denies family history of Ovarian cancer Breast cancer Colorectal cancer Past Surgical History Surgical History H/O parathyroidectomy History of breast biopsy History of colonoscopy History of tonsillectomy and adenoidectomy History of tooth extraction History of total hip replacement LEFT S/P lumpectomy of breast LEFT Total knee replacement status RT Past Anesthesia History No Hx of Anesthesia Complications and No Family Hx of Anesthesia Complications History of PONV No Hx of PONV and Hx of Motion Sickness (remote hx) Social History Smoking Status: Former smoker tobacco type: cigarettes Do You Dip or Chew Tobacco: No Smoking End Date: 1983 Hx Alcohol Use: Yes Alcohol type: wine alcohol intake frequency: holidays/special occasions only Hx Substance Use: No substance use type: does not use Review of Systems Patient denies chest pain, shortness of breath, dyspnea on exertion, fever, chills, cough, wheezing, palpitations. Physical Exam Vital Signs VITALS BP 141/84 P 65 TEMP 98.1 SP02 96%RA RESP 16 PHYSICAL Full neck and c-spine range of motion. Full TMJ range of motion. TMD 3 finger breaths Mallampati Score 2 Dentition: several implants/crowns, + intact Lungs: clear throughout to auscultation Cardiac: regular rate and rhythm, no murmurs noted Spine: normal Carotid arteries: negative bruit Extremities: no edema Testing Laboratory Results 09/23/19 13:52 09/23/19 13:52 PT 10.6 Seconds (9.0-12.0) 09/23/19 13:52 INR 1.0 (0.9-1.1) 09/23/19 13:52 APTT 30.7 Seconds (21.0-31.0) 09/23/19 13:52 Urine Color Yellow 09/23/19 13:52 Urine Appearance Clear (Clear) 09/23/19 13:52 Urine pH 5.0 (4.5-7.5) 09/23/19 13:52 Ur Specific [place] 1.013 (1.000-1.030) 09/23/19 13:52 Urine Protein Negative (Negative) 09/23/19 13:52 Urine Glucose (UA) Negative (Negative) 09/23/19 13:52 Urine Ketones 1+ (Negative) H 09/23/19 13:52 Urine Nitrite Negative (Negative) 09/23/19 13:52 Ur Leukocyte Esterase 1+ (Negative) H 09/23/19 13:52 Urine WBC (Auto) 5-10 /hpf (0-5) H 09/23/19 13:52 Urine RBC (Auto) 5-10 /hpf (0-4) H 09/23/19 13:52 U Hyaline Cast (Auto) 1-5 /lpf (0-5) 09/23/19 13:52 U Epithel Cells (Auto) >30 /lpf (0-5) H 09/23/19 13:52 Urine Bacteria (Auto) 1+ (Negative) H 09/23/19 13:52 Surgeon's office made aware of abnormal UA* Electrocardiogram Date: 09/23/19 NSR at 62bpm. unconfirmed report* Chest X-Ray Date: 09/23/19 Findings: + NAD
--- NOTE | 2019-09-23 14:36 | XRay Report ---
XR chest Pre-admission PA/Lat CLINICAL HISTORY: PAT preoperative evaluation COMPARISON STUDY: No previous studies for comparison. FINDINGS: The bones soft tissues and hemidiaphragms are normal. The cardiomediastinal silhouette is n ormal. The lungs are clear. The pulmonary vasculature is normal. IMPRESSION: Negative chest. ACT 112: Negative or not required by law. The above report was generated using voice recognition software. It may contain grammatical, syntax or spelling errors. Electronically signed by: Fernie Miller M.D. 09/23/2019 2:35 PM
[2019-09-23 14:55] LABS: Basophils # (auto) 0.01 K/uL (0-0.2); Basophils % (auto) 0.1 %; Eosinophils # (auto) 0.07 K/uL (0-0.5); Hematocrit (blood only) 41.3 % (37-47); Hemoglobin 13.5 g/dL (12.0-16.0); Immature Granulocytes # (auto) 0.01 K/uL (0.00-0.02); Immature Granulocytes % (auto) 0.1 %; Lymphocytes % (auto) 25.1 %; Mean Corpuscular Hemoglobin 30.3 pg (25-34); Mean Corpuscular Hgb Conc 32.7 g/dL (32-36); Mean Corpuscular Volume 92.6 fL (80-100); Monocytes # (auto) 0.57 K/uL (0.11-0.59); Monocytes % (auto) 8.4 %; Neutrophils # (auto) 4.41 K/uL (1.4-6.5); Neutrophils % (auto) 65.3 %; Platelet Count 211 K/uL (130-400); RDW Coefficient of Variation 13.7 % (11.5-14.5); RDW Standard Deviation 46.5 fL (36.4-46.3); Red Blood Count 4.46 M/uL (4.2-5.4); White Blood Count 6.77 K/uL (4.8-10.8)
[2019-09-23 15:00] LABS: Appearance Urine Clear (Clear); Bacteria Urine Automated 1+ (Negative); Bilirubin Urine Negative (Negative); Blood Urine Negative (Negative); Color Urine Yellow; Epithelial Cell Urine Auto >30 /lpf (0-5); Glucose Urine UA Negative (Negative); Ketones Urine 1+ (Negative); Leukocyte Esterase Urine 1+ (Negative); Nitrite Urine Negative (Negative); Protein Urine Negative (Negative); Specific Gravity Urine 1.013 (1.000-1.030); Urobilinogen Urine Negative (Negative)
[2019-09-23 15:02] LABS: BUN Creatinine Ratio 25.4 (10-20); Calcium 10.2 mg/dl (8.5-10.1); Creatinine Clr Calc Pharmacy 87.5 ml/min; Est GFR (African American) 98.8; Est GFR (Non-African American) 85.2
[2019-09-23 15:06] LABS: Partial Thromboplastin Ratio 1.1; Partial Thromboplastin Time 30.7 Seconds (21.0-31.0); Prothrombin Time 10.6 Seconds (9.0-12.0)
--- NOTE | 2019-09-24 06:37 | Electrocardiogram Report ---
Test Reason : Blood Pressure : / mmHG Vent. Rate : 062 BPM Atrial Rate : 062 BPM P-R Int : 186 ms QRS Dur : 084 ms QT Int : 386 ms P-R-T Axes : 074 057 072 degrees QTc Int : 391 ms Normal sinus rhythm Normal ECG When compared with ECG of 13-DEC-2016 13:50, No significant change was found Confirmed by Zach Koroma ([id number]) on 09/24/2019 6:37:02 AM Referred By: Gorge Moy Confirmed By:Zach Koroma
--- NOTE | 2019-10-04 07:40 | History & Physical Report ---
Date of Service October 04, 2019 Assessment & Plan (1) Degenerative joint disease of right hip: Approximately 20 minutes were spent with the patient reviewing operative procedure, postoperative recovery, physical therapy requirements and medication use. Postoperative prescriptions for Percocet will be provided at discharge from the hospital. The patient would like to use aspirin 325 mg b.i.d. postoperatively instead of Coumadin. I will have her speak with Dr. Moy regarding this. Preoperative lab work, EKG, and chest x-ray have already been obtained yesterday. The patient will see her PCP, Dr. English for medical clearance. The patient is aware of the COVID-19 risks associated with surgery. She is currently asymptomatic of any COVID-19 symptoms. She will be tested for COVID with a nasal swab test a few days prior to surgery and then self-quarantined. Results will be made available to her prior to surgery. She already has a rolling walker and will bring this at the time of surgery. Anticipate use of home health nursing postoperatively. History of Present Illness Chief Complaint: Right hip pain Primary Care Provider: Abiodun English MD This 79-year-old white female presents today with right hip pain for several years. . She is scheduled to undergo a right hip total hip arthroplasty on 10/06/2019. Pain has become worse with time. Pain is affecting her ADLs. It is worse with weightbearing. She denies any numbness or tingling. She has tried activity modification as well as oral pain medication and physical therapy without improvement. She elects to proceed with surgical intervention in hopes of improving her function and discomfort. Preoperative imaging has been obtained. She has pain with any type of rotation. She does ambulate with a limp. She already has a left total hip replacement done in 05/2010. Allergies Allergy/AdvReac Type Severity Reaction Status Date / Time ciprofloxacin Allergy Intermediate tachycardia Verified 09/23/19 13:08 erythromycin base Allergy Intermediate hives Verified 09/23/19 13:08 Sulfa (Sulfonamide Allergy Intermediate hives Verified 09/23/19 13:08 Antibiotics) Cipro AdvReac Mild TACHYACARDI Verified 01/08/17 09:33 A Home Medications Home Medications Medication Instructions Recorded Confirmed Type cholecalciferol (vitamin D3) 50 2,000 units PO DAILY tab 10/23/18 08/27/19 History mcg (2,000 unit) tablet epinephrine 0.3 mg/0.3 mL 0.3 mg IM ONCE PRN #2 ea 10/23/18 08/27/19 History injection, auto-injector fexofenadine 60 mg tablet 60 mg PO DAILY PRN tab 10/23/18 08/27/19 History calcium citrate 200 mg (950 mg) 200 mg PO DAILY tab 11/04/18 08/27/19 History tablet albuterol sulfate [ProAir HFA] 1 inh INHALATION QID PRN 08/27/19 08/27/19 History conjugated estrogens 0.625 mg/gram 0.625 mg VAGINAL WK #30 gm 09/24/19 Rx vaginal cream levothyroxine 75 mcg tablet See Rx Instructions .ROUTE 09/24/19 Rx .COMPLEX #96 tab Past Med/Surg History Medical History Asthma, intermittent 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 Hypothyroidism Obesity Osteoarthritis Osteoporosis Parathyroid cancer s/p parathyroidectomy Prediabetes Stress incontinence Uterine prolapse + pessary Surgical History H/O parathyroidectomy History of breast biopsy History of colonoscopy History of tonsillectomy and adenoidectomy History of tooth extraction History of total hip replacement LEFT S/P lumpectomy of breast LEFT Total knee replacement status RT Family History Sister Multiple myeloma Grandmother (Paternal) Family history of diabetes mellitus Denies family history of Ovarian cancer Breast cancer Colorectal cancer Social History Preferred Language: Korean Communication Ability: Effective Hearing Ability: Normal Healthcare Consulting Manager Required: No Beliefs That Will Affect Care: None marital status: Current Living Situation: Alone Feels Safe at Home: Yes Smoking Status: Former smoker Tobacco Type: cigarettes ; Age Started Using Tobacco: 23 ; Age Quit Using Tobacco: 35 ; Second Hand Exposure: No ; Hx Alcohol Use: Yes Alcohol type: wine Hx Substance Use: No caffeine: Yes Seatbelt Use: always Review of Systems Review of Systems: All systems reviewed & are unremarkable except as noted in HPI & below Physical Exam Physical Exam: Vitals: Height 167 cm, weight 105 kilograms, BMI 37.6, temperature 36.4 oral, BP 128/78, pulse 71, O2 sat 96% on room air. General: Well-developed, well-nourished, obese, elderly white female in no acut e distress. Sitting in a chair. Alert and oriented. Skin: Warm and dry with good turgor. No rashes or lesions. No ecchymosis or erythema. HEENT: Normocephalic, atraumatic. Eyes: PERRLA, EOMI. Nares and oropharynx deferred due to COVID risk. The patient is wearing a mask. Heart: RRR, no MGR. Lungs: Clear to auscultation bilaterally, no crackles, rhonchi or wheezing, good air movement. Abdomen: Bowel sounds present x4, soft, nontender. No organomegaly. No masses. Obese. Lungs: Clear to auscultation bilaterally, no crackles, rhonchi or wheezing, good air movement. Musculoskeletal: Right hip evaluation reveals no obvious asymmetry or deformity. She has discomfort with palpation over the anterior flexion crease. She also has significant anterior pain with internal and external rotation. Motion is limited secondary to pain. External rotation of about 20 degrees, internal rotation of only about 5 degrees. No significant discomfort with passive hip flexion. She does have significant discomfort when rising from a chair and with weightbearing. This pain is anterior. Strength is 5/5 for resisted hip flexion, abduction, and adduction. Intact motor function of the knee. Neurologic: Gross sensation is intact across both lower extremities by soft touch. Peripheral pulses are 2+. Results & Data Results & Data ([facility]) Diagnostic Findings Radiographic imaging obtained today shows advancement of her osteoarthritis from her films in January. Periarticular osteophytes, subchondral sclerosis, and joint space narrowing are all present.
[~2019-10-06 06:56] MED LIST changes: -ASPI81TA28 PO; +BUPIVACAINE 0.5 % 5 MG/1 ML PF 10ML VIAL ONE; +CEFAZOLIN 2000MG 2,000 MG/15 ML SYR IV SCH; -CHOL100010 PO; -LEVO75TA PO; +LR 60ML/HR IV SCH; +ROPIVACAINE 0.5% HCL/PF 150 MG, BUPIVACAINE 0.5% MPF 30 ML, EPINEPHrine 0.15 MG, Ketoro... INFIL SCH; +TRANEXAMIC ACID 1,000 MG **IV Pre-op IV SCH
[2019-10-06] MEDS ORDERED: PROPOFOL IV EMULSION 10 MG/ML 20 ML VIAL IV ONE ×2 (07:37→09:39)
[2019-10-06] MEDS ORDERED: LIDOCAINE HCL 2% 2 ML VIAL/AMP(20MG/ML) INFIL ONE (07:37)
[2019-10-06] MEDS ORDERED: MIDAZOLAM HCL 1 MG/ML 2ML VIAL ONE ×2 (07:38→09:05)
[2019-10-06] MEDS ORDERED: fentaNYL citrate 100 MCG/2 ML VIAL ONE (07:38)
--- NOTE | 2019-10-06 08:26 | History & Physical Bridge Note ---
Date of Service October 06, 2019 History & Physical Bridge Note I have examined the patient, reviewed the History & Physical and in the interval since the performance of the History & Physical I have noted the following changes of clinical significance: consent obtained/covid screen negative/site marked.no changes noted
[2019-10-06] MEDS ORDERED: PROMETHAZINE HCL 12.5 MG in SODIUM CHLORIDE 0.9% 50 ML IV PRN (08:38)
[2019-10-06] MEDS ORDERED: ORTHO JOINT ANESTHETIC ONE (08:38)
[2019-10-06] MEDS ORDERED: METOCLOPRAMIDE HCL INJ 5 MG/ML 2 ML VIAL IV PRN ×2 (08:38→11:26)
[2019-10-06] MEDS ORDERED: ePHEDrine sulfate 50 MG/ML AMP IV PRN (08:38)
[2019-10-06] MEDS ORDERED: ONDANSETRON INJ 2 MG/ML 2 ML VIAL IV PRN ×2 (08:38→11:26)
[2019-10-06] MEDS ORDERED: fentaNYL citrate 100 MCG/2 ML VIAL IV PRN (08:38)
[2019-10-06] MEDS ORDERED: HYDROmorphone INJ 2 MG/ML SYR/VIAL IV PRN (08:38)
[2019-10-06] MEDS ORDERED: ATROPINE SULFATE 0.1 MG/ML 10ML SYR IV PRN (08:38)
[2019-10-06] MEDS ORDERED: CEFAZOLIN 250 MG/ML 1 GM VIAL ONE (09:23)
[2019-10-06] MEDS ORDERED: ONDANSETRON INJ 2 MG/ML 2 ML VIAL ONE (09:23)
[2019-10-06] MEDS ORDERED: CEFAZOLIN 1000MG 1,000 MG/7.5 ML SYR IV ONE (09:32)
--- NOTE | 2019-10-06 10:24 | Post Operative Brief Note ---
Immediate Post Op Note v1 Date of Surgery October 06, 2019 Pre & Post Diagnosis Operation Date: 10/06/19 08:50 Pre-Op Diagnosis: Right Hip Degenerative Joint Disease Post-Op Diagnosis: Right Hip Degenerative Joint Disease I identified the patient and participated in the time-out.: Yes Procedure Operation Date: 10/06/19 08:50 Actual Procedures p Right Total Hip Arthroplasty - Uncemented(Right) - Gorge Moy MD Surgeon Gorge Moy MD Finisher Map And Chart [facility] Estimated Blood Loss 100 Findings Consistent with Post-Op Diagnosis
--- NOTE | 2019-10-06 10:31 | Operative Report ---
Post Operative Report Pre & Post Diagnosis Operation Date: 10/06/19 08:50 Pre-Op Diagnosis: Right Hip Degenerative Joint Disease Post-Op Diagnosis: Right Hip Degenerative Joint Disease I identified the patient and participated in the time-out.: Yes Procedure Operation Date: 10/06/19 08:50 Actual Procedures p Right Total Hip Arthroplasty - Uncemented(Right) - Gorge Moy MD Surgeon KANDY Moy MD Superintendent Pipelines [facility] Estimated Blood Loss 100 Findings Consistent with Post-Op Diagnosis Specimens see operative report Drains none Complications none Disposition Accompanied Patient To Recovery: Yes Disposition: Recovery Room Indications This 79-year-old white female presented to the office with complaints of intractable right hip pain. She had tried conservative care measures without improvement. Patient elected to proceed with surgical intervention after being educated about potential risks and outcomes. Preoperative imaging was obtained. Description of Procedure Patient was administered a spinal anesthetic and then taken to the operating room where she was given sedation. She was prepped and draped in the usual sterile fashion. Please see Dr. Moy's operative report for specifics of the procedure. I was present for the entire case from initial patient positioning through final wound closure. Assistance was provided in tissue retraction, hemostasis, trial implant placement, final implant placement, and final wound closure. Patient was taken to the recovery room in satisfactory condition. I attest to the content of the Intraoperative Record and any orders documented therein. Any exceptions are noted below.
--- NOTE | 2019-10-06 10:51 | Operative Report (OR) ---
DATE OF OPERATION: 10/06/2019 SURGEON: Gorge Moy MD. IV RN: Swapnil Zamarripa PA-C. No resident or fellow available. PREOPERATIVE DIAGNOSIS: Osteoarthritis, right hip. POSTOPERATIVE DIAGNOSIS: Osteoarthritis, right hip. OPERATION PERFORMED: Noncemented right total hip replacement. SUMMARY OF IMPLANTS: Size 54 acetabular shell sector cup, 25 screw, hole eliminator 52 x 36, +4 neutral liner, 6 high offset stem, 36+5 mm head, ceramic. ESTIMATED BLOOD LOSS: 150 mL or less. CRYSTALLOID: Per anesthesia. PATHOLOGY: Pending on bone. DVT prophylaxis with Coumadin. PERIOPERATIVE SITUATION: Medically cleared female with intractable hip pain, has x-rays revealing end-stage disease, wants to proceed with surgical treatment. She has had a left hip replacement and right knee replacement. She understands the risks and complications. Back had one episode of instability of the left hip 4 years postop. She is now 9 years postop, but has never had any other since. She understands the risks and consequences. DESCRIPTION OF PROCEDURE: The patient was appropriately identified, site verified, consent verified. Antibiotics confirmed as being given. The right lower extremity was prepped and draped in usual routine fashion with the patient in left lateral decubitus position. A posterolateral approach to the hip was utilized. She was a high BMI. Once the IT band and the gluteus miquel fascia was identified, they were split. Care was taken to protect the sciatic nerve and 2 Charnley retractors placed. The short external rotators released the capsule teed, the hip dislocated, the femoral neck resected. Acetabular exposure was excellent with anterior capsular release of the femoral neck capsule, labrum excised and serial reaming carried up to a 50 and a 50 cup impacted into appropriate anteversion and inclination. A 6.5 x 25 screw placed with excellent purchase. The wound was then irrigated and trial liner seated. The femur was then flexed and internally rotated. The proximal femur prepared with the card boxer, lateralizing rasp, canal finder, and serial broaching up to a size 6. This +5 high offset stem gave excellent stability in all planes. Leg lengths were equal. The hip was then dislocated. All remaining trial elements were removed. The hole eliminator seated, permanent liner seated, permanent head and stem seated and the hip reduced. It was stable in all planes. Short external rotators and capsule closed with #2 Vicryl, the deep fascia with the same stitch, the deep fat with the same stitch, the superficial subcutaneous layer with 2-0 Vicryl, the skin with stainless steel clips. Appropriate dressing applied and patient transferred to recovery room in satisfactory condition having tolerated the procedure well. She required a Prevena postop based on BMI. I attest to the content of the Intraoperative Record and any orders documented therein. Any exception s are noted below.
--- NOTE | 2019-10-06 11:04 | XRay Report ---
AP PELVIS History: Right total hip arthroplasty. Degenerative arthritis. Postop. FINDINGS: The patient is status post a right total hip arthroplasty. The hardware is intact. No fract ure or dislocation. Skin valerie are in place. Evidence for prior left total arthroplasty. IMPRESSION: Right total hip arthroplasty. No evidence for hardware complication ACT 112: Negative or not required by law. Electronically signed by: Victor Manuel Goldsmith M.D. 10/06/2019 11:03 AM
--- NOTE | 2019-10-06 11:13 | Progress Notes ---
DATE: 10/06/2019 SUBJECTIVE: Postop status post right total hip replacement. The patient is sitting up in bed, has no issues. She denies any chest pain, shortness of breath, fever, chills, nausea, vomiting or headache. OBJECTIVE: Neurovascular check limited by spinal. Wound dressing clean, dry and intact. Postop x-ray looks excellent. ASSESSMENT: Doing well status post right total hip replacement and prepare for discharge tomorrow.
--- NOTE | 2019-10-06 11:14 | Discharge Summary (DS) ---
DATE OF DISCHARGE: 10/07/2019 CHIEF COMPLAINT: Right hip pain. HISTORY OF PRESENT ILLNESS: The patient underwent elective noncemented right total hip replacement. Hospital course to date has been uneventful. The patient tolerated the procedure well. PAST MEDICAL HISTORY: Remarkable for asthma, breast cancer, hypothyroidism, obesity, osteoarthritis, osteoporosis, parathyroid cancer, prediabetes, stress incontinence, uterine prolapse and pessary. PAST SURGICAL HISTORY: Remarkable for parathyroidectomy, breast biopsy, colonoscopy, tonsillectomy, adenoidectomy, tooth extraction, left hip replacement, right knee replacement, lumpectomy of her left breast. FAMILY HISTORY: Positive for multiple myeloma and grandmother has a history of diabetes. Family history is absent of ovarian or colorectal cancer. SOCIAL HISTORY: Reveals that she speaks Malian. She hears normally. She is . She lives alone. She has a daughter who will live with her. No substance abuse. Drinks social alcohol. REVIEW OF SYSTEMS: Noncontributory. Postop x-rays look excellent. ASSESSMENT: Doing well status post right total hip replacement. Continue with postop care pathway and prepare for discharge tomorrow.
[2019-10-06] MEDS ORDERED: FEXOFENADINE 60 MG TAB PO PRN (11:26)
[2019-10-06] MEDS ORDERED: MAGNESIUM HYDROXIDE SUSP 30 ML UDC PO PRN (11:26)
[2019-10-06] MEDS ORDERED: DiphenhydrAMINE HCL 50 MG/ML VIAL IV PRN (11:26)
[2019-10-06] MEDS ORDERED: HYDROmorphone INJ 0.5 MG/0.5 ML SYR IV PRN (11:26)
[2019-10-06] MEDS ORDERED: NALOXONE HCL 0.4 MG/1 ML VIAL/CARP IV PRN (11:26)
[2019-10-06] MEDS ORDERED: OXYCODONE HCL IR 5 MG TAB (IMMEDIATE RELEASE) PO PRN (11:26)
[2019-10-06] MEDS ORDERED: bisacodyL 10 MG SUPP PR PRN (11:26)
[2019-10-06] MEDS ORDERED: ALUMINUM/MAGNESIUM SUSP 30 ML UDC PO PRN (11:26)
[2019-10-06] MEDS ORDERED: SODIUM CHLORIDE 0.9% 1000ML 1,000 ML IV SCH (11:26)
[2019-10-06] MEDS ORDERED: ALBUTEROL HFA 8 GM INHALER INH PRN (11:38)
--- NOTE | 2019-10-06 12:04 | Anesthesiology Progress Note ---
Date of Service October 06, 2019 Anesthesia Post Procedure Vital Signs Vital Signs: Temp Pulse Pulse Resp BP Pulse Ox 10/06/19 11:44 36.4 C L 50 L 18 114/72 98 10/06/19 11:00 36.5 C 56 L 16 114/66 98 10/06/19 10:50 59 L 16 114/66 96 10/06/19 10:40 59 L 16 123/66 96 10/06/19 10:30 36.4 C L 63 16 117/68 96 10/06/19 07:32 36.7 C 77 18 137/90 95 Transfer of Care Handoff Completed per policy Notes Mental Status: alert / awake / arousable and participated in evaluation Patient Amnestic to Procedure: Yes Nausea / Vomiting: adequately controlled Pain: adequately controlled Airway Patency, RR, SpO2: stable & adequate BP & HR: stable & adequate Hydration State: stable & adequate Neuraxial Anesthesia: was administered and sensory block is resolving Anesthetic Complications: no major complications apparent
[2019-10-06] MEDS: ACETAMINOPHEN 500 MG TAB PO SCH ×2 (13:21→22:04)
[2019-10-06] MEDS: KETOROLAC TROMETHAMINE 15 MG/ML VIAL IV SCH ×2 (13:22→20:06)
[2019-10-06] MEDS ORDERED: TRAMADOL HCL 50 MG TABLET PO PRN (13:46)
[2019-10-06] MEDS ORDERED: ACETAMINOPHEN 500 MG TAB PO PRN (13:46)
[2019-10-06] MEDS ORDERED: ORTHO WARFARIN NOMOGRAM SCH (14:00)
[2019-10-06] MEDS ORDERED: WARFARIN SOD 5 MG TAB PO SCH (16:00)
[2019-10-06] MEDS ORDERED: TRANEXAMIC ACID / 0.7% NACL 1,000 MG/100 ML BAG IV SCH (16:45)
[2019-10-06] MEDS: CEFAZOLIN 2000MG 2,000 MG/15 ML SYR IV SCH ×2 (17:01→23:34)
[2019-10-06] MEDS: FERROUS GLUCONATE 324 MG TAB PO SCH (17:54)
[2019-10-06] MEDS: ASCORBIC ACID 500 MG TAB PO SCH (17:54)
[2019-10-06] MEDS: DOCUSATE SODIUM 100 MG CAP PO SCH (20:11)
[2019-10-06] MEDS: PANTOprazole 40 MG TAB PO SCH (20:12)
[2019-10-06] MEDS ORDERED: SENNA 8.6 MG TAB PO SCH (21:00)
[2019-10-07] MEDS: KETOROLAC TROMETHAMINE 15 MG/ML VIAL IV SCH ×2 (02:07→08:57)
[2019-10-07] MEDS: ACETAMINOPHEN 500 MG TAB PO SCH (05:39)
[2019-10-07] MEDS ORDERED: LEVOTHYROXINE SODIUM 75 MCG TABLET PO SCH (06:30)
[2019-10-07 06:32] LABS: Basophils # (auto) 0.01 K/uL (0-0.2); Basophils % (auto) 0.1 %; Eosinophils # (auto) 0.02 K/uL (0-0.5); Eosinophils % (auto) 0.2 %; Hematocrit (blood only) 37.3 % (37-47); Hemoglobin 12.2 g/dL (12.0-16.0); Immature Granulocytes # (auto) 0.02 K/uL (0.00-0.02); Immature Granulocytes % (auto) 0.2 %; Lymphocytes # (auto) 1.15 K/uL (1.2-3.4); Lymphocytes % (auto) 11.7 %; Mean Corpuscular Hemoglobin 30.8 pg (25-34); Mean Corpuscular Hgb Conc 32.7 g/dL (32-36); Mean Corpuscular Volume 94.2 fL (80-100); Mean Platelet Volume 13.2 fL (7.4-10.4); Monocytes # (auto) 0.94 K/uL (0.11-0.59); Monocytes % (auto) 9.6 %; Neutrophils # (auto) 7.65 K/uL (1.4-6.5); Neutrophils % (auto) 78.2 %; Platelet Count 164 K/uL (130-400); RDW Coefficient of Variation 14.1 % (11.5-14.5); RDW Standard Deviation 48.2 fL (36.4-46.3); Red Blood Count 3.96 M/uL (4.2-5.4); White Blood Count 9.79 K/uL (4.8-10.8)
[2019-10-07 06:42] LABS: INR 1.1 (0.9-1.1); Prothrombin Time 11.7 Seconds (9.0-12.0)
[2019-10-07 07:00] LABS: BUN Creatinine Ratio 17.5 (10-20); Calcium 9.5 mg/dl (8.5-10.1); Creatinine Clr Calc Pharmacy 97.9 ml/min; Est GFR (Non-African American) 88.9
--- NOTE | 2019-10-07 07:22 | Progress Notes ---
DATE: 10/07/2019 SUBJECTIVE: Postop day #1 status post right total hip replacement. The patient is doing well, has no issues. She is sitting up in bed. She denies chest pain, shortness of breath, fever, chills, nausea, vomiting or headache. OBJECTIVE: Vital signs are stable. She is afebrile. Neurovascular check, femoral sciatic nerve is normal. Wound dressing clean, dry and intact. Calves nontender. ASSESSMENT: Doing well. PLAN: Is to discharge today. Prevena on her right hip. She will follow up in 2 weeks for staple removal. He will be on Coumadin for DVT prophylaxis. She does not like narcotics. We will try tramadol prescription, p.r.n. Advil and Tylenol. Coumadin to keep INR 1.8-2.2.
[2019-10-07] MEDS ORDERED: dexAMETHasone 10 MG in SYRINGE 0 ML IV SCH (08:00)
--- NOTE | 2019-10-07 08:20 | Anesthesiology Progress Note ---
Date of Service October 07, 2019 Anesthesia Post Procedure Vital Signs Vital Signs: Temp Pulse Pulse Pulse Resp BP BP 10/07/19 02:41 36.4 C L 58 L 16 113/71 10/06/19 23:04 36.8 C 64 16 122/81 10/06/19 19:30 36.6 C 68 18 130/81 10/06/19 15:35 36.4 C L 66 16 137/82 10/06/19 14:15 36.6 C 57 L 16 127/79 10/06/19 13:28 51 L 18 148/87 H 10/06/19 12:14 36.4 C L 53 L 16 108/69 10/06/19 11:44 36.4 C L 50 L 18 114/72 10/06/19 11:00 36.5 C 56 L 16 114/66 10/06/19 10:50 59 L 16 114/66 10/06/19 10:40 59 L 16 123/66 10/06/19 10:30 36.4 C L 63 16 117/68 Pulse Ox 10/07/19 02:41 95 10/06/19 23:04 96 10/06/19 19:30 96 10/06/19 15:35 95 10/06/19 14:15 99 10/06/19 13:28 95 10/06/19 12:14 99 10/06/19 11:44 98 10/06/19 11:00 98 10/06/19 10:50 96 10/06/19 10:40 96 10/06/19 10:30 96 Pain Intensity Right Hip: Pain Intensity: 3 Notes Mental Status: alert / awake / arousable and participated in evaluation Nausea / Vomiting: adequately controlled Pain: adequately controlled Airway Patency, RR, SpO2: stable & adequate BP & HR: stable & adequate Hydration State: stable & adequate Neuraxial Anesthesia: sensory block resolved Anesthetic Complications: Pt Satisfied with anesthetic care
[2019-10-07] MEDS: DOCUSATE SODIUM 100 MG CAP PO SCH (08:54)
[2019-10-07] MEDS: FERROUS GLUCONATE 324 MG TAB PO SCH (08:55)
[2019-10-07] MEDS: PANTOprazole 40 MG TAB PO SCH (08:55)
[2019-10-07] MEDS: ASCORBIC ACID 500 MG TAB PO SCH (08:56)
[2019-10-07] MEDS ORDERED: MULTIVITAMIN TAB PO SCH (09:00)
--- NOTE | 2019-10-07 09:46 | Orthopedic Progress Note ---
Date of Service October 07, 2019 Assessment & Plan (1) Status post total hip replacement, right: PT/OT this morning. Dressing was changed by me. Prevena wound VAC was placed. She will follow-up in the office in a week for removal. Appointment has been made for 3:30pm on October 13. Continue total hip precautions. Continue Coumadin Nomogram. She will be given a dose here today before departure. Resume home administration tomorrow. Continue use of her walker for ambulation. Prescriptions for Coumadin, tramadol, and Protonix have been sent to her pharmacy. Admission and Anticipated Discharge Date Admission Date: October 06, 2019 Subjective This 79-year-old white female was seen today in her room. She is sitting in a chair. She states she feels ready for discharge to home. She denies any chest pain, shortness of breath, nausea, vomiting, or abdominal pain. She states she has very little hip pain. She has been ambulatory. She is already participated with occupational therapy. No other complaints. Review of Systems Review of Systems: Unchanged from yesterday Physical Exam Physical Exam: General: Well-developed, well-nourished, elderly white female, in no acute distress. Sitting in a chair. Alert and oriented. Conversive. Skin: Warm and dry with good turgor. Postoperative dressing is in place. Upon removal, she has minimal drainage on her dressings. No active drainage from the wound. Gaston are in place. Musculoskeletal: Patient has supple motion of her right hip. She ambulates well using her walker. Intact motor function for hip flexion, knee extension, knee flexion, and ankle motion. Neurologic: Gross sensation is intact across the right lower extremity by soft touch. Peripheral pulses are 2+. Results & Data ([facility]) Vital Signs (Past 12 Hours) Vital Signs Temp Pulse Pulse Resp BP BP Pulse Ox 10/07/19 08:33 36.4 C L 68 18 110/75 96 10/07/19 02:41 36.4 C L 58 L 16 113/71 95 10/06/19 23:04 36.8 C 64 16 122/81 96 Laboratory Results H&H obtained this morning are 12.2 and 37.3. WBCs are 9.8. INR is 1.1. PRP is unremarkable.
[2019-10-07] MEDS ORDERED: WARFARIN SOD 5 MG TAB PO ONE (11:15)
== END 2019-10-07 12:40 | disposition home health service (06) ==
LOC: ASU 06:56 → INTOOBSV 10:38 → 3E 10:38